=== PATIENT | female | born 1990 | race Two or more races ===

== ENCOUNTER 2019-08-13 16:48 | Inpatient (IN) | payer OTHER ==
[~2019-08-13] VITALS: Ht 170.2 cm; Wt 62.6 kg
[~2019-08-13 16:48] MED LIST: FOLIC ACID1 MG PO; HIERRO PO
[2019-09-12] MEDS ORDERED: PRENATAL TABLE1 EACH PO (08:25)
[2019-09-12] MEDS ORDERED: IRON325 MG PO (08:27)
[2019-09-12] MEDS ORDERED: VALACYCLOVIR500 MG PO (08:27)
== END 2019-09-14 14:31 | disposition home or self-care (01) | DRG 807 ==
LOC: LDR 09-12 06:41 → SURG-SUITE 09-12 14:51 → OB/GYN 09-18 15:30
PROVIDERS: ADMIT Obstetrics & Gynecology
PROC: 10E0XZZ Delivery of Products of Conception, External Approach (ICD-10-PCS; principal; 2019-09-12)
PROC: 10907ZC Drainage of Amniotic Fluid, Therapeutic from Products of Conception, Via Natural or Artificial Opening (ICD-10-PCS; 2019-09-12)
PROC: 10907ZC Drainage of Amniotic Fluid, Therapeutic from Products of Conception, Via Natural or Artificial Opening (ICD-10-PCS; 2019-09-12)
PROC: 3E033VJ Introduction of Other Hormone into Peripheral Vein, Percutaneous Approach (ICD-10-PCS; 2019-09-12)
PROC: 4A1HXCZ Monitoring of Products of Conception, Cardiac Rate, External Approach (ICD-10-PCS; 2019-09-12)
DX: O80 Encounter for full-term uncomplicated delivery (principal); Z37.0 Single live birth; Z3A.39 39 weeks gestation of pregnancy; Z22.330 Carrier of Group B streptococcus